=== PATIENT | female | born 1980 | race Caucasian/White ===

== ENCOUNTER 2020-01-14 06:17 | Day surgery (SDC) | payer OTHER ==
[~2020-01-14 06:17] MED LIST: TYLENOL-CODEINE1 TAB PO
== END 2020-01-14 19:45 | disposition home or self-care (01) ==
LOC: CIR.AMB 06:17 → ADM 11:45 → CIR.AMB 19:45
PROVIDERS: ATTEND Obstetrics & Gynecology
DX: N70.11 Chronic salpingitis (principal); N73.6 Female pelvic peritoneal adhesions (postinfective); Z20.828 Contact with and (suspected) exposure to other viral communicable diseases